=== PATIENT | male | born 1985 | race Caucasian/White ===

== ENCOUNTER 2017-11-02 18:55 | Emergency (ER) | payer OTHER ==
[2017-11-02] MEDS ORDERED: LIDOCAINE 1% INJ-PF (10 MG/ML) 30 ML SDV INJ ONE (20:55)
[2017-11-02] MEDS ORDERED: CEPHALEXIN 500 MG CAPSULE PO ONE (20:56)
[2017-11-02] MEDS ORDERED: DIPH/PERTUSS(ACELL)/TETANUS VAC/PF 0.5 ML SYR (>=10YO) IM ONE (20:56)
--- NOTE | 2017-11-02 20:56 | ER Document Report ---
ED Hand/Wrist Injury - General Chief Complaint: Hand Injury Stated Complaint: FINGER INJURY Time Seen by Provider: 11/02/17 20:26 Notes: 32-year-old male to the emergency department after puncture wound to the fifth digit on the left hand. Patient is right-hand dominant. Tetanus possibly over 5 years. No other injuries. Wound on the volar surface of the fifth digit on the left hand. Through and through the pad of the fifth digit distal phalanx. Sensation is still present and patient is able to flex and extend the digit without difficulty other than some mild pain TRAVEL OUTSIDE OF THE [place] IN LAST 30 DAYS: No - Related Data Allergies/Adverse Reactions: No Known Allergies Allergy (Verified 11/02/17 18:56) Past Medical History - Social History Smoking Status: Former Smoker Chew tobacco use (# tins/day): No Frequency of alcohol use: Occasional Drug Abuse: None Lives with: Family Family History: Reviewed & Not Pertinent Patient has suicidal ideation: No Patient has homicidal ideation: No Renal/ Medical History: Denies: Hx Peritoneal Dialysis Physical Exam - Vital signs Vitals: Temp Pulse Resp BP Pulse Ox 98.4 F 60 16 127/71 H 97 11/02/17 19:00 11/02/17 19:00 11/02/17 19:00 11/02/17 19:00 11/02/17 19:00 Course - Re-evaluation Re-evalutation: 11/02/17 22:22 No obvious fracture seen on x-ray. Laceration repaired. Antibiotics given based on the fact that it was a dirty puncture wound. Tetanus updated. Patient advised to follow-up with his regular doctor or the emergency department or urgent care to have sutures removed in 7-10 days - Vital Signs Vital signs: Temp Pulse Resp BP Pulse Ox 98.4 F 60 16 127/71 H 97 11/02/17 19:00 11/02/17 19:00 11/02/17 19:00 11/02/17 19:00 11/02/17 19:00 Procedures - Laceration/Wound Repair Left 5th digit Wound length (cm): 0.5 Wound's Depth, Shape: Into muscle Laceration pre-procedure: Shur-Clens applied Anesthetic type: 1% Lidocaine Volume Anesthetic (mLs): 5 Wound explored: Clean, No foreign body removed Irrigated w/ Saline (mLs): 250 Wound Debrided: Moderate Wound Repaired With: Sutures Suture Size/Type: 4:0, Prolene Number of Sutures: 4 Layer Closure?: No Post-procedure wound care: Sterile dressing applied Complications: No Discharge - Discharge Clinical Impression: Puncture wound of finger Qualifiers: Encounter type: initial encounter Qualified Code(s): S61.239A - Puncture wound without foreign body of unspecified finger without damage to nail, initial encounter Condition: Good Disposition: HOME, SELF-CARE Instructions: Puncture Wound ([facility]) Additional Instructions: No obvious fracture seen on x-ray. Laceration repaired. Antibiotics given based on the fact that it was a dirty puncture wound. Tetanus updated. Patient advised to follow-up with his regular doctor or the emergency department or urgent care to have sutures removed in 7-10 days. If you begin to notice redness, swelling, discharge, pain with straightening of the finger or your finger looks like a small sausage you should be seen immediately. Keep finger clean and dry for the next 24 hours. Prescriptions: Cephalexin Monohydrate [Keflex 500 mg Capsule] 500 mg PO Q6H 5 Days capsule
--- NOTE | 2017-11-02 22:28 | RADIOLOGY REPORT (SQ) ---
EXAM DESCRIPTION: FINGER LEFT COMPLETED DATE/TIME: 11/02/2017 9:16 pm REASON FOR STUDY: PUNCTURE WOUND COMPARISON: None. NUMBER OF VIEWS: Three views. TECHNIQUE: AP, lateral, and oblique images acquired of the left second finger. LIMITATIONS: None. FINDINGS: MINERALIZATION: Normal. BONES: No acute fracture or dislocation. No worrisome bone lesions. SOFT TISSUES: No soft tissue swelling. No foreign body. OTHER: No other significant finding. IMPRESSION: NO RADIOGRAPHIC EVIDENCE OF ACUTE INJURY. COMMENT: SITE OF TRAUMA/COMPLAINT MARKED/STAMP COMPLETED: No TECHNICAL DOCUMENTATION: JOB ID: [id number] [employer]- All Rights Reserved Reading location - IP/workstation name: [email or web address]
[2017-11-02 22:45] VITALS: BP 146/56
== END 2017-11-02 22:40 | disposition home or self-care (01) ==
LOC: ER 18:55
PROC: 0HQGXZZ Repair Left Hand Skin, External Approach (ICD-10-PCS; principal; 2017-11-02)
DX: S61.239A Puncture wound without foreign body of unspecified finger without damage to nail, initial encounter (principal); X58.XXXA Exposure to other specified factors, initial encounter; Z87.891 Personal history of nicotine dependence; Z23 Encounter for immunization
CPT/HCPCS: 99283; 90471; 73140; 90715; 12001; J3490